=== PATIENT | male | born 1970 | race Caucasian/White ===

== ENCOUNTER 2018-03-19 17:53 | Inpatient (IN) | payer BC, OTHER ==
[~2018-03-19] VITALS: Ht 182.9 cm; Wt 72.6 kg
--- NOTE | 2018-03-19 21:00 | NUR ---
Intake Assessment Pt assessed in intake department.Pt is A/A/O X 4.He is here because he wants to stop drinking alcohol.Speech is clear and coherent.Pt is able to ambulate with a steady gait.Pt denies any allergies or any medical problems.V/S obtained.B/P=150/92,IU=560,T=97.6,R=16,O2 SAT=97%.Pt is in a stable condition to proceed to [facility].
[2018-03-19] MEDS ORDERED: MAGNESIUM HYDROXIDE 30 ML LIQUID UDC PO PRN (21:45)
[2018-03-19] MEDS ORDERED: THIAMINE HCL 200 MG/2 ML VIAL IM ONE (21:45)
[2018-03-19] MEDS ORDERED: MAG HYDROX/AL HYDROX/SIMETH 30 ML LIQUID UDC PO PRN (21:45)
[2018-03-19] MEDS ORDERED: ONDANSETRON 4 MG/2 ML VIAL IM PRN (21:45)
[2018-03-19] MEDS ORDERED: MIRALAX 17 GM POWD.PACK PO PRN (21:45)
[2018-03-19] MEDS ORDERED: ONDANSETRON ODT 4 MG TAB.RAPDIS SL PRN (21:45)
[2018-03-19] MEDS ORDERED: LORAZEPAM 2 MG/1 ML VIAL IM PRN (21:45)
[2018-03-19] MEDS ORDERED: LOPERAMIDE HCL 2 MG CAPSULE PO PRN ×2 (21:45)
[2018-03-19] MEDS ORDERED: LORAZEPAM 1 MG TABLET PO PRN (21:45)
--- NOTE | 2018-03-19 22:00 | NUR ---
ADMISSION NOTE HT=6 FEET; 0 INCHES. AW=234 POUNDS. B/P=152/105,T=97.9,P=114,R=18,S1BQP=17%. CIWA=12. NKDA/NKFA Admitting 48 y/o to [facility] for medically supervised withdrawals from ETOH.Pt is A/O X 4,lives at home with his mother.Pt stated that he has been drinking 1 to 2 pints of alcohol on a daily basis for about 9 to 12 months.Pt stated that he was sober for 4 years and relapsed approximately 9 months to 1 year ago due to stress.Pt stated that he has been taking care of his mother and working and felt really stressed out.Pt denies having any allergies to food or medications,denies having any medical problems and does not have a PCP.Pt placed on a regular diet and full code status.Skin is intact, warm and dry to touch,breathing is even and non labored,abdomen is soft and palpable with b/s present x 4.No c/o N/V/D/C noted.Pt denies any SI/HI/AH/VH.Pt denies any history of seizures.Pt oriented to room and unit,care plan and safety checks initiated,education material provided,snack provided,MD notified,orders obtained.All safety measures in place per hospital policy with call pedersen within reach.Pt placed on fall and seizure precaution.Will continue to medicate as needed and monitor for safety. DRUG HX ALCOHOL - PT HAS BEEN DRINKING 1 T0 2 PINTS OF ALCOHOL ON A DAILY BASIS. LAST DRINK WAS 4 OZS OF WHISKY AT 1500 ON 03/19/18. DETOX HX ROSSI RECOVERY FOR 28 DAYS. PT IS UNABLE TO REMEMBER THE DATES AND YEAR.
[2018-03-19] MEDS: CLONIDINE HCL 0.1 MG TABLET PO PRN (22:18)
[2018-03-19] MEDS: LORAZEPAM 1 MG TABLET PO PRN (22:18)
--- NOTE | 2018-03-19 22:18 | NUR ---
PRN MEDS PT C/O FEELING ANXIOUS,RESTLESS,SHAKY WITH HOT AND COLD FLASHES.PRN ATIVAN 2 MG PO GIVEN FOR CIWA 12. PRN CLONIDINE GIVEN FOR B/P 152/105.WILL MONITOR FOR EFFECTIVENESS.
[2018-03-19 22:27] LABS: *AMPHETAMINE, URINE NEGATIVE (NEGATIVE); *BARBITURATE, URINE NEGATIVE (NEGATIVE); *CANNABINOID, URINE POSITIVE (NEGATIVE); *COCCAINE, URINE NEGATIVE (NEGATIVE); *OPIATE, URINE NEGATIVE (NEGATIVE); *PHENCYCLIDINE SCREEN,URINE NEGATIVE (NEGATIVE)
[2018-03-19 22:49] LABS: BASOPHILS % (AUTO) 0.4 % (0.0-2.0); EOSINOPHILS % (AUTO) 0.2 % (0.0-7.0); HEMATOCRIT 46.9 % (36.7-47.1); HEMOGLOBIN 16.6 g/dL (12.5-16.3); LYMPHOCYTES # (AUTO) 1.3 K/uL (20.0-40.0); LYMPHOCYTES % (AUTO) 17.6 % (20.5-51.5); MEAN CORPUSCULAR HEMOGLOBIN 38.2 uug (23.8-33.4); MEAN CORPUSCULAR HGB CONC 35 g/dL (32.5-36.3); MEAN CORPUSCULAR VOLUME 108.1 fL (73.0-96.2); MONOCYTES # (AUTO) 0.3 K/uL (2.0-10.0); MONOCYTES % (AUTO) 4.1 % (0.0-11.0); NEUTROPHILS # (AUTO) 5.7 K/uL (1.8-8.9); NEUTROPHILS % (AUTO) 77.7 % (38.5-71.5); PLATELET COUNT (AUTO) 164 K/uL (152-348); RED BLOOD CELL COUNT(AUTO) 4.34 MIL/uL (4.06-5.63); WHITE BLOOD COUNT (AUTO) 7.4 K/uL (3.6-10.2)
[2018-03-19 23:12] LABS: BILIRUBIN,TOTAL 0.6 mg/dL (0.2-1.0); MAGNESIUM 1.7 mg/dL (1.8-2.4); TOTAL PROTEIN, SERUM 7.4 g/dL (6.4-8.2)
--- NOTE | 2018-03-19 23:15 | NUR ---
PRN F/U PRN ATIVAN AND CLONIDINE ARE EFFECTIVE.CIWA DECREASED TO 8; B/P=134/95.
[2018-03-19 23:18] LABS: THYROID STIMULATING HORMONE 1.507 mIU/mL (0.358-3.740)
[2018-03-20] VITALS (7 sets, daily range): BP systolic 135–145; BP diastolic 87–100
[2018-03-20] MEDS ORDERED: MAGNESIUM OXIDE 400 MG TABLET PO ONE (02:15)
[2018-03-20] MEDS ORDERED: POTASSIUM CHLORIDE 20 MEQ TAB.PRT.SR PO ONE ×2 (02:15→06:15)
--- NOTE | 2018-03-20 02:37 | NUR ---
K DUR AND MAG OX GIVEN ORDERED FOR LOW POTASSIUM AND MAGNESIUM LEVELS.
[2018-03-20] MEDS: LORAZEPAM 1 MG TABLET PO PRN (04:07)
--- NOTE | 2018-03-20 04:08 | NUR ---
PRN ATIVAN 2 MG PO GIVEN FOR CIWA-12.PT IS ANXIOUS,RESTLESS,UNABLE TO SLEEP,HAS HAND TREMORS AND CHILLS.WILL CONTINUE TO MONITOR FOR EFFECTIVENESS.
--- NOTE | 2018-03-20 05:00 | NUR ---
PRN F/U PT IS CALM AND RESTING IN BED WITH EYES CLOSED,APPEARS TO BE SLEEPING.UNABLE TO REASSESS FOR CIWA AT THIS TIME.WILL CONTINUE TO MONITOR.
--- NOTE | 2018-03-20 06:47 | NUR ---
END OF SHIFT Pt is a 48 y/o male admitted to [facility] for medically supervised withdrawals from ETOH.Pt is A/O X 4. Pt denies having any allergies to food or medications and denies having any medical problems, placed on a regular diet and full code status. denies any SI/HI/AH/VH.Pt denies any history of seizures.Last CIWA 12 at 0400.PRN meds: Ativan x 2 and Clonidine were given and were effective.Potassium and Magnesium replaced as ordered.Pt slept intermittently for 4 hrs.Fluid intake was 500 mls,voided x 1. PO fluids encouraged. Safety measures in place; side rails up X2, bed low and locked position, fall and seizure precautions maintained at all times. Will continue to monitor
--- NOTE | 2018-03-20 08:20 | NUR ---
START OF SHIFT: RECEIVED PT A/O X 4. HIS COMPLEXION IS FLUSHED AND MOIST. HIS HANDS ARE TREMULOUS. HE REPORTS H/A NAUSEA,ANXIETY,RESTLESSNESS AND IRRITABILITY. CIWA 25. ZOFRAN ODT ADMINISTERED PRIOR TO MED ADMINISTRATION TO MANAGE NAUSEA. PRN MOTRIN GIVEN TO MANAGE H/A 03/19. ATIVAN TAPER STARTED TO MANAGE S/S OF W/D. HE WAS ENCOURAGED TO INCREASE FLUIDS AND REST TODAY. PPD PLANTED TO [facility]. WILL CONTINUE TO MONITOR AND MANAGE S/S OF W/D.
[2018-03-20] MEDS: MULTIVITAMINS,THERAPEUTIC TABLET PO SCH (09:00)
[2018-03-20] MEDS ORDERED: TUBERCULIN,PURIF.PROT.DERIV. 5 TU/0.1 ML TEST ID ONE (09:00)
--- NOTE | 2018-03-20 09:20 | NUR ---
PT STATES ZOFRAN WAS EFFECTIVE FOR NAUSEA AND PRN MOTRIN EFFECTIVE FOR H/A . HE DENIES NAUSEA OR H/A AT THIS TIME.
[2018-03-20] MEDS: LORAZEPAM 1 MG TABLET PO SCH ×4 (09:26→21:36)
[2018-03-20] MEDS: IBUPROFEN 600 MG TABLET PO PRN ×2 (09:26→21:35)
[2018-03-20] MEDS: THIAMINE HCL 100 MG TABLET PO SCH (09:26)
[2018-03-20] MEDS: FOLIC ACID 1 MG TABLET PO SCH (09:27)
--- NOTE | 2018-03-20 19:04 | NUR ---
END OF SHIFT: PT STARTED ON ATIVAN TAPER TODAY TO MANAGE S/S OF W/D WHICH INCLUDE ANXIETY,SWEATS,TREMORS AGITATION,RESTLESSNESS AND NAUSEA. PRN ZOFRAN GIVEN THIS AM PRIOR TO MED ADMINISTRATION AND EFFECTIVE. MOTRIN GIVEN FOR H/A AND EFFECTIVE. LAST CIWA 15. HE STATES THE DETOX MEDS ARE EFFECTIVE AND WAS COMPLIANT WITH INCREASED FLUIDS. PPD TO BE READ ON LFA 0N 03/22. WILL PASS SHIFT REPORT TO ONCOMING NIGHT NURSE.
--- NOTE | 2018-03-20 19:30 | NUR ---
START OF SHIFT Pt is a 48 y/o male admitted to [facility] for medically supervised withdrawals from ETOH.Pt is A/O X 4. Received resting in bed .Last CIWA 15 at 1600. PO fluids encouraged. PRN Motrin and Zofran were given and effective.Safety measures in place; side rails up X2, bed low and locked position, fall and seizure precautions maintained at all times. Will continue to monitor.
[2018-03-20] MEDS: diphenhydrAMINE 50 MG CAPSULE PO PRN (21:35)
--- NOTE | 2018-03-20 21:37 | NUR ---
PRN MEDS PRN MOTRIN AND BENADRYL GIVEN ORDERED FOR C/O LOWER ABDOMINAL PAIN AND INSOMNIA.PAIN LEVEL IS 5/10.WILL MONITOR FOR EFFECTIVENESS.
--- NOTE | 2018-03-20 22:40 | NUR ---
PRN MEDS ARE EFFECTIVE.PT IS CALM AND RESTING IN BED WITH EYES CLOSED,NO S/S OF DISTRESS NOTED.WILL CONTINUE TO MONITOR.
[2018-03-21] VITALS: BP 135/88
--- NOTE | 2018-03-21 | NUR ---
CIWA DEFERRED D/T PT BEING ASLEEP.BREATHING IS EVEN AND NON LABORED.NO S/S OF DISTRESS NOTED.WILL CONTINUE TO MONITOR.
[2018-03-21 04:00] VITALS: BP 132/84
--- NOTE | 2018-03-21 04:00 | NUR ---
CIWA DEFERRED D/T PT BEING ASLEEP.BREATHING IS EVEN AND NON LABORED.NO S/S OF DISTRESS NOTED.WILL CONTINUE TO MONITOR.
--- NOTE | 2018-03-21 07:19 | NUR ---
END OF SHIFT Pt is a 48 y/o male admitted to [facility] for medically supervised withdrawals from ETOH.Pt is A/O X 4.Last CIWA 8 at 1999. PO fluids encouraged. PRN Motrin and Benadryl were given and effective.Pt slept 6 hrs,fluid intake was 1200 mls,voided x 1.Safety measures in place; side rails up X2, bed low and locked position, fall and seizure precautions maintained at all times. Will continue to monitor.
--- NOTE | 2018-03-21 07:30 | NUR ---
Start of Shift Behavioral Therapy Coordinator received report on 48 year old male admitted to [facility] on 03/19/18 for medical management of ETOH withdrawals. Pt reports NKA, full code and regular diet. No known seizure history. Pt denies PMH, PPH to include anxiety. Pt currently on an Ativan taper, tolerating well with last CIWA 8, per NOC report. Pt had no PRN medication administered per report. Behavioral Therapy Coordinator encounters pt in pts room resting with eyes closed, rise and fall of chest noted. Even and unlabored respirations. Bed in low position with wheels locked and side rails up for safety. Will continue to monitor, support and encourage according to plan of care.
[2018-03-21 08:30] VITALS: BP 118/87
[2018-03-21] MEDS: LORAZEPAM 1 MG TABLET PO SCH ×3 (09:37→20:38)
[2018-03-21] MEDS: MULTIVITAMINS,THERAPEUTIC TABLET PO SCH (09:37)
[2018-03-21] MEDS: FOLIC ACID 1 MG TABLET PO SCH (09:37)
[2018-03-21] MEDS: THIAMINE HCL 100 MG TABLET PO SCH (09:37)
[2018-03-21 10:11] LABS: HEPATITIS B SURFACE AG Negative (Negative)
[2018-03-21 12:30] VITALS: BP 131/98
[2018-03-21 16:53] VITALS: BP 120/90
--- NOTE | 2018-03-21 18:45 | NUR ---
End of Shift [employer] Principal provided report on 48 year old male admitted to [facility] on 03/19/18 for medical management of ETOH withdrawals. Pt reports NKA, full code and regular diet. No known seizure history. Pt denies PMH, PPH to include anxiety. Pt currently on an Ativan taper, tolerating well with last CIWA 11, recorded at 1600. Pt had no PRN medication administered this shift. Pt is A/O x4 and makes needs known. Clear thought process with normal speech pattern. Pt is visible and social with peers. Tremulous and anxious. Bed in low position with wheels locked and side rails up for safety.
--- NOTE | 2018-03-21 18:45 | NUR ---
START OF SHIFT NOTE: Endorsed patient is a 48 year old male continues ordered 5 day Ativan Taper for Alcohol (Vodka)withdrawal, and tolerated well. The patient remains compliant with treatment, medications, and diet regime. He is resting in bed, and watching TV. Patient is alert and oriented x4. The patient appears worried with flat affect and anxious mood. The most recent CIWA=11 at 1607: During the day patient presented with anxiety, agitation, nervousness, depression, irritability, tremors, sweating, restlessness, fatigue, pins, and needles sensation, per day shift nurse report. VSWNL. Respirations are even and unlabored. Skin is intact, warm, and dry to touch. No PRN Medications administrated. Encouraged for fluid intake as tolerated. Encouraged to attended groups activities. All needs met. Safety measures: Call light within reach, bed in the lowest position locked, and padded rails up x2. Patient endorsed by day shift nurse. Will continue to monitor closely.
[2018-03-21 20:00] VITALS: BP 136/88
[2018-03-21] MEDS: GABAPENTIN 300 MG CAPSULE PO SCH (20:37)
[2018-03-21] MEDS: diphenhydrAMINE 50 MG CAPSULE PO PRN (20:38)
--- NOTE | 2018-03-21 20:38 | NUR ---
PRN BENADRYL 50 MG 1 CAPSULE PO ADMINISTRATION PRN Benadryl 50 mg PO administrated as ordered for insomnia with full glass of water. Patient tolerated well. Safe and calm environment with minimized noises was provided. All needs met. Safety measures in the place: Call light within reach, bed locked in the lowest position, padded rails up x2. Will continue to monitor closely.
--- NOTE | 2018-03-21 21:38 | NUR ---
RE-ASSESSMENT Patient is sleeping. RR 16. Respirations even and unlabored. PRN Benadryl 50 mg PO administrated at 2037 as ordered was effective. Safe and calm environment with minimized noises was provided. All needs met. Safety measures in the place: Call light within reach, bed locked in the lowest position, padded rails up x2. Will continue to monitor closely.
[2018-03-22] VITALS: BP 130/87
--- NOTE | 2018-03-22 04:00 | NUR ---
VS REFUSED, CIWA DEFERRED VS refused, CIWA deferred at 0400 due to patient sleeping; to be assessed and scored while patient is awake. Respirations are even and unlabored. RR:15. Calm and safety environment with minimized noises provided. All needs met. Safety measures in place: Call light within reach, bed locked in lowest position, and padded bed rails up bilaterally. Will continue to monitor closely.
--- NOTE | 2018-03-22 06:57 | NUR ---
END OF SHIFT NOTE: Endorsed patient is a 48 year old male presented for Alcohol (Vodka) withdrawal continues 5 Day Ativan Taper which tolerated well. Withdrawal symptoms closely monitoring. The patent reports NKA, Full Code, Regular Diet, is on Fall and Seizures Precautions. The patient denies History of Withdrawal-Induced Seizures. The patient denies SI/HI. He is alert and oriented x4. Patient appears anxious, fearful, depressed, worry with flat affect. Encouraged to expresses his feelings. Education provided to use of Relaxation Techniques: Deep breathing exercises, guided imagery, and visualization. Patient noted unshaven, disheveled, unkempt, and uncombed. Educated in safety and hygiene care. Encouraged to independently perform hygiene care. Initial CIWA=14 at 2000. The most recent CIWA=11 at 0000: Patient presented with moderate withdrawal symptoms of anxiety, agitation, nervousness, stomach cramps, generalized body cramps, tremors, sweating, nasal congestion, fatigue, and restlessness. VS refused, CIWA deferred at 0400 due to patient sleeping; to be assessed and scored while patient is awake. VSWNL. Respirations are even and unlabored. Patient denies SOB, chest pain, and cough. Skin is intact, warm and dry to touch. PRN Benadryl 50 mg PO administrated at 2037 as ordered was effective. The patient remains compliant with treatment, medications, and diet regime. The patient rested normally during night, no signs of agitation. Respirations are even and unlabored. Patient denies SOB, chest pain, and cough. Skin remains intact, warm and dry to touch. Calm and safety environment with minimized noises was provided. Patient slept 9 hours, intake 1,875 ml, voided x1, stool x1. Encouraged to fluid intake as tolerated. Encourage to attended groups activities. All needs met. Safety measures: Call light within reach, bed locked in the lowest position, and padded rails up x2. Patient endorsed to day shift nurse.
--- NOTE | 2018-03-22 07:30 | NUR ---
Start of Shift Guitar Teacher received report on 48 year old male admitted to [facility] on 03/19/18 for medical management of ETOH withdrawals. Pt reports NKA, full code and regular diet. No known seizure history. Pt denies PMH, PPH to include anxiety. Pt currently on an Ativan taper, tolerating well with last CIWA 11, per NOC report. Pt was administered Benadryl(insomnia) as PRN medication on NOC, per report. Guitar Teacher encounters pt in pts room resting with eyes closed, rise and fall of chest noted. Even and unlabored respirations. Bed in low position with wheels locked and side rails up for safety. Will continue to monitor, support and encourage according to plan of care.
[2018-03-22 08:44] VITALS: BP 112/90
[2018-03-22] MEDS: MULTIVITAMINS,THERAPEUTIC TABLET PO SCH (09:24)
[2018-03-22] MEDS: FOLIC ACID 1 MG TABLET PO SCH (09:24)
[2018-03-22] MEDS: THIAMINE HCL 100 MG TABLET PO SCH (09:24)
[2018-03-22] MEDS: LORAZEPAM 1 MG TABLET PO SCH ×3 (09:24→18:02)
[2018-03-22] MEDS: GABAPENTIN 300 MG CAPSULE PO SCH ×3 (09:24→21:06)
[2018-03-22 09:32] LABS: BILIRUBIN,DIRECT 0.2 mg/dL (0.0-0.2); CREATININE 0.9 mg/dL (0.6-1.3); MAGNESIUM 1.7 mg/dL (1.8-2.4); POTASSIUM 4.1 mmol/L (3.5-5.1); TOTAL PROTEIN, SERUM 7.4 g/dL (6.4-8.2)
--- NOTE | 2018-03-22 11:02 | NUR ---
Unsteady Gait Pt requested to use cane due to feeling light headed while ambulating. Pt complain of weakness, pt with unsteady gait. MD notified and ordered pt to be on 1:1 pending PT evaluation. Aemt assessed pt for Orthostatic Hypotension. Pt's BP as follows Lying; 127/101, Pulse; 110 Sittin/97; Pulse; 108 Standin/94; Pulse: 123 EKG shows tachycardia with an otherwise normal EKG. MD notified of EKG results and BP readings. Staff currently with pt as 1:1. Will continue to monitor, support and encourage according to plan of care.
[2018-03-22 12:30] VITALS: BP 127/87
[2018-03-22 16:30] VITALS: BP 121/76
--- NOTE | 2018-03-22 16:55 | NUR ---
Gait Pt has been removed from 1:1 staffing for unsteady gait. Pt was evaluated by PT and was able to walk the unit twice. Pt with a steady and purposeful gait, no assistive devices or use of furniture to ambulate. Dairy Grazer assessed pt for steady gait and notified Dr. Bettencourt of writers' assessment and MD concurred with assessment to discontinue 1:1 staffing. Pt educated on importance of notifying staff of any light headed feeling or dizziness. Pt educated on importance of dangling feet before attempting to ambulate. Pt's is able to verbalize understanding and denies any further comments, questions or concerns. Will continue to monitor, support and encourage according to plan of care.
--- NOTE | 2018-03-22 18:58 | NUR ---
End of Shift Golf Cart Repairer provided report on 48 year old male admitted to [facility] on 03/19/18 for medical management of ETOH withdrawals. Pt reports NKA, full code and regular diet. No known seizure history. Pt denies PMH, PPH to include anxiety. Pt currently on an Ativan taper, tolerating well with last CIWA 14, recorded at 1630. Pt not administered PRN medication. Pt complained of dizziness and being light headed and was placed on 1:1for safety d/t unsteady gait. Pt was evaluated by PT and this internal communications writer re-assessed pt and determined the need for 1:1 staffing was not needed as pt walks with a steady gait. Pt is calm and cooperative, A/O x4 and makes his needs known. Linear thought process and clear speech pattern. Bed in low position with wheels locked and side rails up for safety.
--- NOTE | 2018-03-22 18:58 | NUR ---
START OF SHIFT NOTE: Presented patient is a 48 year old male admitted for Alcohol (Vodka) withdrawal, and continues ordered 5 day Ativan Taper, which tolerated well. Patient is alert and oriented x4, ambulatory, with steady gait. Speech is soft and clear. The patient remains compliant with treatment, medications, and diet regime. He appears anxious with flat affect and labile mood. The patient presented with anxiety, agitation, nervousness, depression, irritability, tremors, sweating, restlessness, fatigue, pins, and needles sensation, dizziness, per day shift nurse report. CIWA=14 at 1630. Respirations are even and unlabored. Skin is intact, warm, and dry to touch. PRN Medications not administrated. Encouraged for fluid intake as tolerated. Encouraged to attended groups activities. All needs met. Safety measures: Call light within reach, bed in the lowest position locked, and padded rails up x2. Patient endorsed by day shift nurse. Will continue to monitor closely.
[2018-03-22] MEDS ORDERED: LORAZEPAM 1 MG TABLET PO PRN ×2 (19:45)
[2018-03-22 20:00] VITALS: BP 134/89
[2018-03-22] MEDS ORDERED: MAGNESIUM OXIDE 400 MG TABLET PO ONE (21:00)
[2018-03-22] MEDS ORDERED: LORAZEPAM 1 MG TABLET PO SCH (21:00)
[2018-03-22] MEDS: diphenhydrAMINE 50 MG CAPSULE PO PRN (21:06)
--- NOTE | 2018-03-22 22:06 | NUR ---
RE-ASSESSMENT PRN Benadryl 50 mg PO administrated at 2037 as ordered was effective. The patient is sleeping. RR: 14. Respirations are even and unlabored. Safe and calm environment with minimized noises was provided. All needs met. Safety measures in the place: Call light within reach, bed locked in the lowest position, and padded rails up x2. Will continue to monitor closely.
[2018-03-23] VITALS: BP 131/85
[2018-03-23 04:00] VITALS: BP 120/82
--- NOTE | 2018-03-23 07:04 | NUR ---
END OF SHIFT NOTE Endorsed 49 year old male admitted to [facility] for ETOH (Vodka) withdrawal, and tolerated well with ordered 5 day Ativan taper. Patient reports NKA, is on Regular Diet, Full Code, is on Fall and Seizures Precautions. The patient denies history of withdrawal-induced seizures. The patient is alert and oriented x4 with steady gait, and clear, soft speech. Patient appears worried with anxious mood. Emotional support provided. Encouraged to expresses his feelings. Patient noted to be disheveled, unshaven, unkempt and uncombed. Education in safety and hygiene care provided to patient. Encouraged to independently perform hygiene care. Initial CIWA=10 at 2000, CIWA=11 at 0000. Last CIWA=10 at 0400: Patient presented with anxiety, agitation, depression, irritability, fatigue, nervousness, c/o body aches, stomach cramps, sweating, and insomnia. PRN Benadryl 50 mg PO for insomnia administrated at 2106, and was effective. Patient remains compliant with treatment, medications, and diet regime. Safe and calm environment with minimized noises was provided. Patient slept 8 hours, intake 1,355 ml, voided x2. All needs met. Safety measures in the place by hospital policy: Call light within reach, bed in the lowest position and locked, padded rails up x2. Patient endorsed to day shift nurse.
--- NOTE | 2018-03-23 07:30 | NUR ---
START OF SHIFT Pt 48 y/o male admitted for etoh withdrawal. Pt received in room on bed with eyes closed resting, but easily arousable to name. Pt alert and oriented to name, place, and time. Perrla. Skin warm and moist to touch. Respirations even and unlabored. Bilateral hand tremors noted. Pt appears disheveled with clothes scattered throughout the room. Encouraged to maintain hygiene. Pt anxious with pressured speech noted. Pt appears fidgety, not able to sit still. It was reported that pt slept for 8 hours last night. Last reported ciwa=10 @0400. It was reported that pt had difficulty sleeping last night and was given prn medication to help with insomnia. Pt is on a 5 day taper and is on day 4. Bed on lowest position with side rails x2 up for safety. Call light within reach.
[2018-03-23 08:00] VITALS: BP 94/76
[2018-03-23] MEDS: GABAPENTIN 300 MG CAPSULE PO SCH ×3 (08:42→20:18)
[2018-03-23] MEDS: MULTIVITAMINS,THERAPEUTIC TABLET PO SCH (08:42)
[2018-03-23] MEDS: LORAZEPAM 1 MG TABLET PO SCH ×2 (08:42→14:38)
[2018-03-23] MEDS: FOLIC ACID 1 MG TABLET PO SCH (08:43)
[2018-03-23] MEDS: THIAMINE HCL 100 MG TABLET PO SCH (08:43)
[2018-03-23 12:00] VITALS: BP 130/90
[2018-03-23 16:00] VITALS: BP 121/86
--- NOTE | 2018-03-23 19:06 | NUR ---
START OF SHIFT NOTE: The patient is a 48 year old male. He is alert and oriented x4, ambulatory with steady gait. Speech is soft and clear. He is admitted for Alcohol (Vodka) withdrawal, and continues ordered 5 day Ativan Taper which tolerated well. The patient remains compliant with treatment, medications, and diet regime. The most recent CIWA=6 at 1607. The patient appears with flat affect and anxious mood. During day shift patient c/o anxiety, agitation, nervousness, irritability, tremors, sweating, stomach cramps, restlessness, and fatigue. Respirations are even and unlabored. Skin remains intact, warm, and dry to touch. No PRN medications administrated. Encouraged to attend groups activities. Encouraged for fluid intake as tolerated. All needs met. Safety measures: Call light within reach, bed in the lowest position locked, and padded rails up x2. The patient endorsed by day shift nurse. Will continue to monitor closely.
--- NOTE | 2018-03-23 19:06 | NUR ---
END OF SHIFT Pt 48 y/o male admitted for etoh withdrawal. Pt alert and oriented to name, place, and time. Perrla. Respirations even and unlabored. Bilateral hand tremors noted. Pt observed isolative to room for most of the day. Pt with periods of anxiety throughout the morning. Pt appears disheveled. Clothes scattered throughout the room. Encouraged to maintain hygiene. Pt attended group activity. Pt was seen by MD today. Pt medication compliant and tolerated well. No ASE noted. Ciwas=11@0800, 10@1200, and 6@1600. Pt is on a 5 day ativan and is on day 4. Pt Bed on lowest position with side rails x2 up for safety. Gabriel light within reach.
[2018-03-23 20:00] VITALS: BP 116/79
[2018-03-23] MEDS: TRAZODONE 50 MG TABLET PO PRN (20:18)
[2018-03-23] MEDS: diphenhydrAMINE 50 MG CAPSULE PO PRN (20:18)
--- NOTE | 2018-03-23 20:18 | NUR ---
PRN BENADRYL 50 MG 1 CAPSULE PO AND PRN TRAZODONE 50 MG 1 TABLET FOR DEPRESSION ADMINISTRATION PRN Benadryl 50 mg PO administrated for insomnia at 2018, and PRN Trazodone 50 mg PO administrated for depression at 2018 with full glass of water, as ordered. Patient tolerated well. Safe and calm environment with minimized noises was provided. All needs met. Safety measures in the place: Call light within reach, bed locked in the lowest position, and padded rails up x2. Will continue to monitor closely.
[2018-03-23] MEDS ORDERED: LORAZEPAM 1 MG TABLET PO SCH (21:00)
--- NOTE | 2018-03-23 21:18 | NUR ---
RE-ASSESSMENT Patient is sleeping. RR 14. Respirations even and unlabored. PRN Benadryl 50 mg PO administrated for insomnia at 2018, and PRN Trazodone 50 mg PO administrated for depression at 2018, were effective. Safe and calm environment with minimized noises was provided. All needs met. Safety measures in the place: Call light within reach, bed locked in the lowest position, and padded rails up x2. Will continue to monitor closely.
[2018-03-24] VITALS: BP 120/86
--- NOTE | 2018-03-24 04:00 | NUR ---
VS REFUSED, CIWA DEFERRED VS refused, CIWA deferred at 0400 due to patient sleeping; to be assessed and scored while patient is awake. Respirations are even and unlabored. RR:16. All needs met. Safety measures in place: Call light within reach, bed locked in low position, and padded side rails up x2. Will continue to monitor closely.
--- NOTE | 2018-03-24 07:27 | NUR ---
END OF SHIFT NOTE: Presented patient is a 48 year old male tolerated well with ordered 5 Day Ativan Taper for ETOH (Vodka) )withdrawal. Withdrawal symptoms was closely monitored. He is alert and oriented x4, ambulatory with stable gait. The patient appears worried with anxious mood and flat affect. Explained that alcohol withdrawal increases anxiety and uneasiness. Educated to use of Relaxation Techniques: deep breathing exercises, guided imagery, and visualization. Encouraged verbalization of feelings, fears, and anxiety. Emotional support and reassurance provided to patient. Education in safety and hygiene care provided to patient. Initial CIWA=12 at 2000. The most recent CIWA=12 at 0000. During my shift the patient presented with anxiety, agitation, nervousness, irritability, sweating, restlessness, body aches, abdominal cramps, tremors, and fatigue. CIWA taken when patient's awake during night. PRN Benadryl 50 mg PO administrated for insomnia at 2018, and PRN Trazodone 50 mg PO administrated for depression at 2018, were effective. VS refused, CIWA deferred at 0400 due to patient sleeping; to be assessed and scored while patient is awake. Respirations are unlabored and even. Skin is intact, warm and dry to touch. Patient remains compliant with treatment, medications, and diet regime. Encouraged to increase oral fluids intake as tolerated. Encouraged to attend groups activities. Safe and calm environment with minimized noises was provided. Patient sleep 8 hours, intake 1,000 ml, voided x2. All needs met. Safety measures in the place by hospital policy: Call light within reach, bed in the lowest position and locked, padded rails up x2. Patient endorsed to day shift nurse.
--- NOTE | 2018-03-24 07:30 | NUR ---
START OF SHIFT Pt 48 y/o male admitted for etoh withdrawal. Pt received in room on bed with eyes closed resting, but easily arousable to name. Pt alert and oriented to name, place, and time. Perrla. Skin warm and moist to touch. Respirations even and unlabored. Bilateral hand tremors noted. Pt anxious this morning. Pt appears disheveled and unkempt. Clothes, food wrappings, and empty drink bottles scattered throughout the room. Pt with low motivation for self care. Encouraged to maintain hygiene. It was reported that pt slept for 8 hours last night. Pt is a 5 day ativan taper and is on day 5. Last ciwa=12 @0000 reported. Bed on lowest position with side rails x2 up for safety. Call light within reach.
[2018-03-24 08:00] VITALS: BP 99/75
[2018-03-24] MEDS: DICYCLOMINE HCL 20 MG TABLET PO PRN (08:28)
[2018-03-24] MEDS: GABAPENTIN 300 MG CAPSULE PO SCH ×3 (08:28→21:26)
[2018-03-24] MEDS: FOLIC ACID 1 MG TABLET PO SCH (08:28)
[2018-03-24] MEDS: LORAZEPAM 1 MG TABLET PO SCH ×2 (08:28→21:25)
[2018-03-24] MEDS: MULTIVITAMINS,THERAPEUTIC TABLET PO SCH (08:28)
[2018-03-24] MEDS: THIAMINE HCL 100 MG TABLET PO SCH (08:28)
--- NOTE | 2018-03-24 08:34 | NUR ---
PRN Pt states has stomach muscle cramp 4/10. Bentyl po prn per MD order given and tolerated well.
--- NOTE | 2018-03-24 09:34 | NUR ---
PRN EVAL Pt states pain is better but not relieved. on unit evaluating pt.
[2018-03-24 12:00] VITALS: BP 119/88
[2018-03-24 15:28] LABS: BASOPHILS % (AUTO) 0.5 % (0.0-2.0); EOSINOPHILS # (AUTO) 0.2 K/uL (0.0-0.7); HEMATOCRIT 42.5 % (36.7-47.1); HEMOGLOBIN 14.4 g/dL (12.5-16.3); LYMPHOCYTES # (AUTO) 1.1 K/uL (20.0-40.0); LYMPHOCYTES % (AUTO) 14.3 % (20.5-51.5); MEAN CORPUSCULAR HEMOGLOBIN 37.5 uug (23.8-33.4); MEAN CORPUSCULAR HGB CONC 34 g/dL (32.5-36.3); MEAN CORPUSCULAR VOLUME 110.2 fL (73.0-96.2); MONOCYTES # (AUTO) 0.6 K/uL (2.0-10.0); MONOCYTES % (AUTO) 7.2 % (0.0-11.0); NEUTROPHILS # (AUTO) 5.9 K/uL (1.8-8.9); RED BLOOD CELL COUNT(AUTO) 3.86 MIL/uL (4.06-5.63); WHITE BLOOD COUNT (AUTO) 7.9 K/uL (3.6-10.2)
[2018-03-24 15:34] LABS: PLATELET COUNT (AUTO) 134 K/uL (152-348)
[2018-03-24 15:39] LABS: BILIRUBIN,DIRECT 0.1 mg/dL (0.0-0.2); BILIRUBIN,TOTAL 0.4 mg/dL (0.2-1.0); CREATININE 1.1 mg/dL (0.6-1.3); POTASSIUM 4.1 mmol/L (3.5-5.1); TOTAL PROTEIN, SERUM 6.9 g/dL (6.4-8.2)
[2018-03-24 16:00] VITALS: BP 124/97
--- NOTE | 2018-03-24 17:30 | NUR ---
CT Peripheral IV on left AC inplace and intact, saline lock with no redness noted. Pt brought down for CT abd, completed and tolerated well. Awaiting results.
--- NOTE | 2018-03-24 19:40 | NUR ---
Start of Shift Patient Received. Patient is noted in the activities room participating in a group meeting. Per endorsement, patient continues on a modified Ativan taper. Patient was seen and evaluated by MD with right lower abdomen pain with CT orders to rule out appendicitis. Currently awaiting results. Patient received PRN Bentyl with medication noted to be effective. Last noted CIWA 11. All needs attended to promptly. Will continue to monitor.
--- NOTE | 2018-03-24 19:47 | NUR ---
END OF SHIFT Pt 48 y/o male admitted for etoh withdrawal. Pt alert and oriented to name, place, and time. Perrla. Respirations even and unlabored. Bilateral hand tremors noted. Pt observed isolative to room for most of the day. Pt with periods of anxiety throughout this afternoon. Pt appears disheveled and unkempt. Food wrappings and empty drink bottles scattered throughout the room. Encouraged to maintain hygiene. Pt focused on RLQ abd pain throughout the day. MD aware. Pt attended group activity. Pt was seen by MD today. Pt medication compliant and tolerated well. No ASE noted. Ciwas=12@0800, 11@1200, and 11@1600. Pt is on a 5 day ativan and is on day 5. CT of abd/pelvis with contrast completed, awaiting results for c/o RLQ abd pain. Pt Bed on lowest position with side rails x2 up for safety. Gabriel light within reach.
[2018-03-24 20:51] VITALS: BP 144/92
[2018-03-24] MEDS ORDERED: METHOCARBAMOL 750 MG TABLET PO ONE (21:00)
[2018-03-24] MEDS: ACETAMINOPHEN 325 MG TABLET PO PRN (21:26)
--- NOTE | 2018-03-24 21:30 | NUR ---
MD Communication/PRN Medication Administration Patient is noted verbalizing increased body aches, muscle spasms, and pain to the right lower abdomen. Relayed to MD with one time dose of Robaxin one time now. PRN Robaxin and Tylenol administered with routine medications. Will continue to monitor.
--- NOTE | 2018-03-24 22:30 | NUR ---
PRN Medication Reassessment Patient is noted going down stairs for a cigarette break. he is able to verbalize "the medications helped, the pain isn't as bad." PRN Robaxin and Tylenol noted to be effective. Will continue to monitor.
[2018-03-24] MEDS: TRAZODONE 50 MG TABLET PO PRN (22:53)
--- NOTE | 2018-03-24 22:55 | NUR ---
PRN Medication Administration Patient is noted verbalizing inability of falling asleep. PRN Trazodone administered. Will continue to monitor.
--- NOTE | 2018-03-24 23:56 | NUR ---
PRN Medication Reassessment Patient is noted in bed sleeping. breathing even and non labored. No signs of pain or restlessness noted. PRN Trazodone noted to be effective. Will continue to monitor.
[2018-03-25 00:06] VITALS: BP 127/84
--- NOTE | 2018-03-25 04:27 | NUR ---
PRN Medication Administration Patient is noted in bed sleeping. Breathing even and non labored. Patient refused vitals. respirations noted to be 16. CIWA not able to be completed as per order. Will continue to monitor. Addendum: 03/25/18 at 0429 by ALEXX CLINTON LVN Amended: Links added.
--- NOTE | 2018-03-25 07:18 | NUR ---
End of Shift Patient is noted in bed sleeping. Breathing even and non labored. Patient continues on a modified Ativan taper. Patient was seen and evaluated by MD with right lower abdomen pain with CT orders to rule out appendicitis. Results noted with no significant findings. Relayed to MD with no new orders. Patient received PRN Tylenol, Robaxin, and Trazodone with medications noted to be effective. Last noted CIWA 14. Patient noted to sleep a total of 7 hours. All needs attended to promptly. Will endorse to continue plan of care as ordered.
--- NOTE | 2018-03-25 07:30 | NUR ---
START OF SHIFT Pt 48 y/o male admitted for etoh withdrawal. Pt received in room awake sitting on chair watching television. Pt alert and oriented to name, place, and time. Perrla. Skin warm and moist to touch. Respirations even and unlabored. Bilateral hand tremors noted. Pt anxious this morning. Pt appears disheveled and unkempt. Empty drink bottles scattered throughout the room. Encouraged to maintain hygiene. Pt anxious this morning, appears preoccupied. It was reported that pt slept for 8 hours last night. Pt is a 5 day ativan taper and is on day 5. Last ciwa=14 @2100 reported. Bed on lowest position with side rails x2 up for safety. Call light within reach.
[2018-03-25 08:00] VITALS: BP 129/87
[2018-03-25] MEDS: THIAMINE HCL 100 MG TABLET PO SCH (08:22)
[2018-03-25] MEDS: GABAPENTIN 300 MG CAPSULE PO SCH ×2 (08:22→21:00)
[2018-03-25] MEDS: ACETAMINOPHEN 325 MG TABLET PO PRN (08:22)
[2018-03-25] MEDS: DICYCLOMINE HCL 20 MG TABLET PO PRN (08:22)
[2018-03-25] MEDS: MULTIVITAMINS,THERAPEUTIC TABLET PO SCH (08:22)
[2018-03-25] MEDS: FOLIC ACID 1 MG TABLET PO SCH (08:22)
--- NOTE | 2018-03-25 08:25 | NUR ---
PRN Pt states has abd pain 5/10. Pt also states has stomach cramps. Tylenol po prn per MD order given and tolerated well. Bentyl po prn per MD order given and tolerated well.
[2018-03-25] MEDS ORDERED: LORAZEPAM 1 MG TABLET PO SCH (09:00)
--- NOTE | 2018-03-25 09:25 | NUR ---
PRN AMOL Pt observed in room on bed with eyes closed resting, but easily arousable to name.
[2018-03-25] MEDS ORDERED: ACAM333T8 PO (11:37)
[2018-03-25] MEDS ORDERED: DISU250T7 PO (11:37)
[2018-03-25 12:00] VITALS: BP 131/84
[2018-03-25] MEDS ORDERED: DIPH50CA37 PO (14:52)
[2018-03-25] MEDS ORDERED: GABA-534 PO (14:52)
[2018-03-25] MEDS ORDERED: CLON0.1T14 PO (14:52)
[2018-03-25] MEDS ORDERED: IBUP-1955 PO (14:52)
[2018-03-25] MEDS ORDERED: DICY20TA28 PO (14:52)
[2018-03-25] MEDS ORDERED: ACAMPROSATE CALCIUM 333 MG TABLET.DR PO ONE (15:00)
[2018-03-25 16:00] VITALS: BP 149/92
[2018-03-25] MEDS: CLONIDINE HCL 0.1 MG TABLET PO PRN ×2 (17:20→21:01)
--- NOTE | 2018-03-25 17:24 | NUR ---
PRN Pt with tearful episode and is pacing in room. Catapres po prn per MD order given and tolerated well.
--- NOTE | 2018-03-25 18:24 | NUR ---
SANIYA CARMICHAEL pt observed in room sitting on chair watching television.
--- NOTE | 2018-03-25 18:31 | NUR ---
END OF SHIFT Pt 48 y/o male admitted for etoh withdrawal. Pt alert and oriented to name, place, and time. Perrla. Skin warm and moist to touch. Respirations even and unlabored. Pt appears disheveled. Clothes and empty drinking bottles scattered throughout the room. Encouraged to maintain hygiene. Pt with episode of tearfulness this afternoon. Pt stated was upset that he would not be able to see his girlfriend when he is done with treatment here. Catapres po prn per MD orders given and tolerated well. Pt observed mostly isolative to room today, but did attend group activity. Pt was seen by MD today. Pt medication compliant and tolerated well. No ASE noted. Pt completed a 5 day ativan taper. Ciwas=7@0800, 7@1200, and 5@1600. Bed on lowest position with side rails x2 up for safety. Call light within reach. Pt is scheduled to be discharged tomorrow.
--- NOTE | 2018-03-25 19:30 | NUR ---
Start of Shift Pt is a 48 y/o male admitted 03/19/18 for medically managed withdrawal/detox from ETOH. Pt is a Full Code on a regular diet with NKS's, pt denies any seizure history. Pt presents with a PMH of Anxiety and PTSD, and is on a 5 day Ativan taper, ending morning of 03/25/18. Pt found sitting in room, c/o and obviously anxious/agitated over d/c in am, not being able to see girlfriend for birthday, leaving mother alone for additional 2 weeks and house matters. Pt says he's got the alcohol under control, but coping mechanisms and stress reduction encouraged for moment. Pt encouraged to "accept treatment" for benefit to self and loved ones. Evening meds reviewed with Benedryl for insomnia and Clonidine for anxiety being requested. Will administer evening meds and monitor pt, promptly attending to all needs
[2018-03-25 20:00] VITALS: BP 134/86
[2018-03-25] MEDS: diphenhydrAMINE 50 MG CAPSULE PO PRN (21:01)
--- NOTE | 2018-03-25 21:01 | NUR ---
PRN Meds Benedryl 50mg PO for insomnia and Clonidine 0.1mg PO for anxiety given. Will continue to monitor, reassessing in 1 hour, and promptly attend to all pt needs.
--- NOTE | 2018-03-25 22:01 | NUR ---
Benedryl 50mg PO for insomnia and Clonidine 0.1mg PO for anxiety given 1 hour prior. At present pt sleeping, RR 14, even and nonlabored. Meds effective.
--- NOTE | 2018-03-26 | NUR ---
VS's CIWA Deferred Midnight VS's, CIWA deferred r/t pt sleeping/refused. RR 14, even and nonlabored. Will continue to monitor, promptly attending to all pt needs.
--- NOTE | 2018-03-26 04:00 | NUR ---
VS's CIWA Deferred 0400 VS's, CIWA deferred r/t pt sleeping/refused. RR 14, even and nonlabored. Will continue to monitor, promptly attending to all pt needs.
--- NOTE | 2018-03-26 07:30 | NUR ---
START OF SHIFT NOTE Received report from night nurse,patient admitted for ETOH withdrawal and patient completed his 5 days Ativan taper tolerated well. Per endorsement patient received PRN Benadryl, Clonidine effective per night nurse, slept for 4 hours, last CIWA was 8. Received patient alert awake, anxious, agitated, flat facial expression. Patient is motivated for his further treatment. Educated patient about importance of being compliant at treatment. Patient verbalized understanding. All safety measures in place. Will cont to monitor.
--- NOTE | 2018-03-26 07:40 | NUR ---
End of Shift Pt is a 48 y/o male admitted 03/19/18 for medically managed withdrawal/detox from ETOH. Pt is a Full Code on a regular diet with NKS's, pt denies any seizure history. Pt presents with a PMH of Anxiety and PTSD, and is on a 5 day Ativan taper, ending morning of 03/25/18. Pt to be d/c'd 03/26/18 am and remains on safety precautions (fall/seizure). Pt PRN's for shift were Benedryl 50mg PO for insomnia and Clonidine 0.1mg PO for anxiety. Pt slept for 4 hours, with 1105mls intake, 3 voids and no BM's. Endorsement given to day nurse.
[2018-03-26 08:00] VITALS: BP 128/89
[2018-03-26] MEDS: MULTIVITAMINS,THERAPEUTIC TABLET PO SCH (08:12)
[2018-03-26] MEDS: FOLIC ACID 1 MG TABLET PO SCH (08:12)
[2018-03-26] MEDS: GABAPENTIN 300 MG CAPSULE PO SCH (08:12)
[2018-03-26] MEDS: THIAMINE HCL 100 MG TABLET PO SCH (08:12)
--- NOTE | 2018-03-26 09:40 | NUR ---
DISCHARGE NOTE Patient admitted fro ETOH withdrawal and completed his Ativan taper tolerated well. Vital signs WNL. Patient denies any SI/HI. All discharge paper work completed signed and dated. Patient did not bring any medications from home. All belongings returned to the patient with prescriptions. Patient ate 100% of his breakfast. Skin intact warm and dry to touch. MD notified of patient's discharge.
== END 2018-03-26 09:40 | DRG 895 ==
LOC: SRC 20:08
PROVIDERS: ADMIT Internal Medicine; ATTEND Internal Medicine
PROC: HZ2ZZZZ Detoxification Services for Substance Abuse Treatment (ICD-10-PCS; principal; 2018-03-19)
PROC: HZ41ZZZ Group Counseling for Substance Abuse Treatment, Behavioral (ICD-10-PCS; 2018-03-20)
PROC: HZ31ZZZ Individual Counseling for Substance Abuse Treatment, Behavioral (ICD-10-PCS; 2018-03-21)
DX: F10.232 Alcohol dependence with withdrawal with perceptual disturbance (principal); K70.10 Alcoholic hepatitis without ascites; K70.0 Alcoholic fatty liver; Y90.7 Blood alcohol level of 200-239 mg/100 ml; I15.9 Secondary hypertension, unspecified; E83.42 Hypomagnesemia; D69.6 Thrombocytopenia, unspecified; E87.6 Hypokalemia; F17.210 Nicotine dependence, cigarettes, uncomplicated; F12.10 Cannabis abuse, uncomplicated; F43.10 Post-traumatic stress disorder, unspecified; K63.89 Other specified diseases of intestine; Z82.49 Family history of ischemic heart disease and other diseases of the circulatory system; Z83.3 Family history of diabetes mellitus; Z80.9 Family history of malignant neoplasm, unspecified; Z84.1 Family history of disorders of kidney and ureter; R73.9 Hyperglycemia, unspecified
CPT/HCPCS: 36415; 70030-TC; 80307; 80349; 83690; 83735; 84443; 85025; 85651; 86140; 86580; 86592; 86705; 86803; 87340; 87806; 93005; G0480; J3411; Q0162; Q0163

== ENCOUNTER → 2018-03-24 | Outpatient (CLI) | payer BC, OTHER ==
[~2018-03-24] MED LIST: ACAM333T8 PO; CLON0.1T14 PO; DICY20TA28 PO; DIPH50CA37 PO; DISU250T7 PO; GABA-534 PO; IBUP-1955 PO; IOHEXOL 300MG/ML 100 ML INFUS..BTL ONE; IV NORMAL SALINE 100 ML ONE; NORMAL SALINE FLUSH 10 ML DISP.SYRIN ONE; SWABABLE VALVE TRANSFER SET EA MC ONE
== END | disposition home or self-care (01) ==
LOC: RAD 16:27
PROVIDERS: ATTEND Internal Medicine
DX: K76.0 Fatty (change of) liver, not elsewhere classified (principal); R16.0 Hepatomegaly, not elsewhere classified
CPT/HCPCS: 74177; J3490 ×2; Q9967